=== PATIENT | female | born 1945 | race American Indian/Alaskan Native ===

== ENCOUNTER 2021-12-22 00:11 | Inpatient (IN) | payer MEDICARE ==
--- NOTE | 2021-12-22 00:57 | Emergency Department Report ---
HPI - General Chief Complaint: Dyspnea/Respdistress Time Seen by Provider: 12/22/21 00:30 - HPI HPI: Room 23 The patient is a 76-year-old female present with a chief complaint of shortness of breath. Patient states symptoms began tonight with difficulty breathing. Patient states she developed substernal chest pain described as feeling as though there was a weight on her chest that lasted approximately 15 minutes and resolved after taking nitroglycerin prior to EMS getting there. Patient states she has had an occasional cough occasionally productive of sputum. Patient denies history of fever and states she has been vaccinated against Covid re ceiving 3 doses of the vaccine. The patient states she has a prescription for Lasix but was taking it incorrectly only using it when her legs are swollen instead of daily. The patient states she had not taken her Lasix for the past week until tonight. The patient is not on home O2 and upon arrival to the ED she was found to be hypoxic to 79% on room air. Patient was placed on a nonrebreather with improvement of her sats to 98% ED Past Medical Hx - Past Medical History Previous Medical History?: Yes Hx Hypertension: Yes Hx Congestive Heart Failure: Yes Additional medical history: ANXIETY, ABDOMINAL ANEURYSM - Surgical History Hx Open Heart Surgery: Yes Hx Internal Defibrillator: Yes Additional Surgical History: Mechanical valve replacement (patient uncertain which valve), AICD, AAA repair - Family History Family history: no significant - Social History Smoking Status: Former Smoker (None x1 year) Substance Use Type: None (Denies illicit drug use) ED Review of Systems ROS: Stated complaint: LA Other details as noted in HPI Constitutional: denies: fever Eyes: denies: eye pain ENT: denies: throat pain Respiratory: cough, shortness of breath Cardiovascular: chest pain Endocrine: no symptoms reported Gastrointestinal: denies: abdominal pain Genitourinary: denies: dysuria Musculoskeletal: denies: back pain Neurological: denies: headache Physical Exam - Physical Exam Vital Signs: Vital Signs 12/22/21 00:12 Temperature 96.4 F L Pulse Rate 86 Respiratory 18 Rate Blood Pressure 152/84 [Left] O2 Sat by Pulse 99 Oximetry Physical Exam: GENERAL: The patient is well-developed well-nourished female lying on stretcher with nonrebreather in place not appearing to be in acute distress. [] HEENT: Normocephalic. Atraumatic. Extraocular motions are intact. Patient has moist mucous membranes. NECK: Supple. Trachea midline CHEST/LUNGS: Diminished throughout. There is no respiratory distress noted. HEART/CARDIOVASCULAR: Regular. There is no tachycardia. There is no gallop rub or murmur. ABDOMEN: Abdomen is soft, nontender. Patient has normal bowel sounds. There is no abdominal distention. SKIN: There is no rash. There is no edema. There is no diaphoresis. NEURO: The patient is awake, alert, and oriented. The patient is cooperative. The patient has no focal neurologic deficits. The patient has normal speech. GCS 15 MUSCULOSKELETAL: There is no evidence of acute injury. ED Course Vital Signs 12/22/21 00:12 Temperature 96.4 F L Pulse Rate 86 Respiratory 18 Rate Blood Pressure 152/84 [Left] O2 Sat by Pulse 99 Oximetry ED Medical Decision Making - Lab Data Result diagrams: 12/22/21 01:05 12/22/21 01:05 - EKG Data -: EKG Interpreted by Me EKG shows normal: sinus rhythm Rate: normal - EKG Data When compared to previous EKG there are: previous EKG unavailable Interpretation: nonspecific ST-T wave jeremy - Radiology Data Radiology results: report reviewed (Chest x-ray), image reviewed (Chest x-ray) interpreted by me: Chest x-ray-CHF. Bilateral pleural effusion. No pneumothorax [address] [address] XRay Report Signed Patient: MELLISSA SLOAN MR#: [id number] : 1945 Acct:[id number] Age/Sex: 76 / F ADM Date: 12/22/21 Loc: ED Attending Dr: Ordering Physician: MUKUND PADILLA MD Date of Service: 12/22/21 Procedure(s): XR chest 1V ap Accession Number(s): [id number] cc: MUKUND PADILLA MD Fluoro Time In Minutes: CHEST 1 VIEW INDICATION / CLINICAL INFORMATION: Shortness of breath, chest pain. COMPARISON: None available. FINDINGS: SUPPORT DEVICES: AICD present, generator left chest wall leads terminating in the region of the right atrial appendage and right ventricular apex. HEART / MEDIASTINUM: Borderline mild cardiomegaly. Prior sternotomy with valve replacement. LUNGS / PLEURA: Increased reticular/linear interstitial markings in the lung bases with some more focal airspace opacification in the left greater than right cardiophrenic angles. Minimal blunting of the right costophrenic angle. No pneumothorax. ADDITIONAL FINDINGS: No significant additional findings. IMPRESSION: 1. Mild decompensation and CHF with bibasilar pulmonary edema and small dependent right pleural ef fusion could be considered. Infectious process not entirely excluded. Signer Name: Paxton Mallory II, MD Signed: 12/22/2021 1:30 AM Workstation Name: [id number] Transcribed By: SAYDA Dictated By: PAXTON MALLORY II, MD Electronically Authenticated By: PAXTON MALLORY II, MD Signed Date/Time: 129 DD/ 8 TD/TT: - Differential Diagnosis CHF exacerbation, pneumonia, bronchitis, Critical care attestation.: If time is entered above; I have spent that time in minutes in the direct care of this critically ill patient, excluding procedure time. ED Disposition Clinical Impression: CHF exacerbation, Hypoxia Disposition: ADMITTED INPATIENT Is pt being admited?: Yes Does the pt Need Aspirin: No Condition: Fair Time of Disposition: 03:19 (Hospitalist notified (Dr Obrien))
--- NOTE | 2021-12-22 01:34 | XRay Report ---
CHEST 1 VIEW INDICATION / CLINICAL INFORMATION: Shortness of breath, chest pain. COMPARISON: None available. FINDINGS: SUPPORT DEVICES: AICD present, generator left chest wall leads terminating in the region of the right atrial appendage and right ventricular apex. HEART / MEDIASTINUM: Borderline mild cardiomegaly. Prior sternotomy with valve replacement. LUNGS / PLEURA: Increased reticular/linear interstitial markings in the lung bases with some more foc al airspace opacification in the left greater than right cardiophrenic angles. Minimal blunting of th e right costophrenic angle. No pneumothorax. ADDITIONAL FINDINGS: No significant additional findings. IMPRESSION: 1. Mild decompensation and CHF with bibasilar pulmonary edema and small dependent right pleural effus ion could be considered. Infectious process not entirely excluded. Signer Name: Hernando Howard II, MD Signed: 12/22/2021 1:30 AM Workstation Name: [id number]
[2021-12-22 01:59] LABS: Creatine Kinase MB 1.2 ng/mL (0.0-4.0)
[2021-12-22 02:00] LABS: Alanine Aminotransferase 14 units/L (7-56); Albumin 3.7 g/dL (3.9-5); BUN/Creatinine Ratio 17; Blood Urea Nitrogen 24 mg/dL (7-17); Calcium 8.7 mg/dL (8.4-10.2); Hemolysis Index 7
[2021-12-22 02:13] LABS: Basophils % (Auto) 0.6 % (0.0-1.8); Eosinophils # (Auto) 0.2 K/mm3 (0.0-0.4); Eosinophils % (Auto) 2.1 % (0.0-4.3); Hematocrit 29.5 % (30.3-42.9); Hemoglobin 9.9 gm/dl (10.1-14.3); Lymphocytes # (Auto) 1.5 K/mm3 (1.2-5.4); Lymphocytes % (Auto) 18.1 % (13.4-35.0); Mean Corpuscular HGB Conc 34 % (30-34); Mean Corpuscular Volume 81 fl (79-97); Monocytes # (Auto) 0.4 K/mm3 (0.0-0.8); Monocytes % (Auto) 4.4 % (0.0-7.3); Platelet Count 275 K/mm3 (140-440); Red Blood Count 3.63 M/mm3 (3.65-5.03); Red Cell Distribution Width 19.7 % (13.2-15.2)
[2021-12-22 02:25] LABS: INR 0.93 (0.87-1.13)
[2021-12-22 02:26] LABS: Partial Thromboplastin Time 24.6 Sec. (24.2-36.6)
[2021-12-22 03:15] LABS: Bacteria,Urine 4+ /HPF (Negative); Bilirubin,Urine NEG (Negative); Blood,Urine SM (Negative); Color,Urine Yellow (Yellow); Hyaline Casts,Urine 12 /LPF; Mucus,Urine 2+ /HPF; Protein,Urine <15 mg/dL mg/dL (Negative); Urobilinogen,Urine < 2.0 mg/dL (<2.0)
[2021-12-22] MEDS ORDERED: ACETAMINOPHEN 325 MG TAB PO PRN (04:35)
[2021-12-22] MEDS ORDERED: ONDANSETRON 4 MG/2 ML INJ IV PRN (04:35)
[2021-12-22] MEDS ORDERED: MORPHINE 2 MG/1 ML INJ IV PRN (04:42)
[2021-12-22] MEDS ORDERED: MORPHINE 4 MG/1 ML INJ IV PRN (04:42)
[2021-12-22] MEDS ORDERED: MAGNESIUM HYDROXIDE (MOM) ORAL LIQD UDC PO PRN (04:42)
--- NOTE | 2021-12-22 04:56 | History and Physical Report ---
History of Present Illness Date of examination: 12/22/21 Date of admission: 12/22/2021 Chief complaint: Shortness of breath History of present illness: 6-year-old female with known history of congestive heart failure, hypertension, history of mechanical valve placement and pacemaker placement presents to the emergency room today complaining of shortness of breath. Shortness of breath is said to have been ongoing going since last night. She also indicates that she had some brief episode of chest pressure during which she took some nitroglycerin with relief. Chest pressure lasted for about 15 minutes. Patient has been on diuretics but admits that she has not been taking her diuretics as directed. She takes the diuretics when she feels her legs are swollen. She did not take diuretics for about a week until today. She has had occasional cough which is nonproductive. She denies any fever or chills, no nausea vomiting and no abdominal pain. Denies any headache or dizziness and also denies any diaphoresis. Patient denies any sick contacts and no recent travel. Denies any contact with anyone with COVID-19. She has been fully vaccinated against COVID-19. Upon arrival of EMS patient was found to be hypoxic with oxygen saturation of about 79% on room air she was subsequently placed on nonrebreather with improvement of oxygen saturation to 90%. Work-up in the emergency room today, lab is significant for BUN of 24 and creatinine of 1.4, BNP of 4950. Urinalysis significant for a mild UTI. Past History Past Medical History: hypertension, other (Anxiety, abdominal aneurysm) Past Surgical History: Other (Mechanical valve replacement (patient uncertain which valve), AICD, AAA repair defibrillator placement, open heart surgery) Social history: smoking (Former smoker) Family history: no significant family history Medications and Allergies Allergies Allergy/AdvReac Type Severity Reaction Status Date / Time Iodine and Iodide Containing Allergy Severe Anaphylaxis Verified 12/22/21 02:21 Produc morphine Allergy Severe Anaphylaxis Verified 12/22/21 02:21 Active Meds: Active Medications Acetaminophen (Acetaminophen 325 Mg Tab) 650 mg PO Q4H PRN PRN Reason: Pain MILD(1-3)/Fever >100.5/[place] Furosemide (Furosemide 40 Mg/4 Ml Inj) 40 mg IV BID@0600,1800 [facility] Magnesium Hydroxide (Magnesium Hydroxide (Mom) Oral Liqd Udc) 30 ml PO Q4H PRN PRN Reason: Constipation Morphine Sulfate (Morphine 2 Mg/1 Ml Inj) 2 mg IV Q4H PRN PRN Reason: Pain, Moderate (4-6) Morphine Sulfate (Morphine 4 Mg/1 Ml Inj) 4 mg IV Q4H PRN PRN Reason: Pain , Severe (7-10) Ondansetron HCl (Ondansetron 4 Mg/2 Ml Inj) 4 mg IV Q8H PRN PRN Reason: Nausea And Vomiting Sodium Chloride (Sodium Chloride 0.9% 10 Ml Flush Syringe) 10 ml IV BID ROSEANN Sodium Chloride (Sodium Chloride 0.9% 10 Ml Flush Syringe) 10 ml IV PRN PRN PRN Reason: LINE FLUSH Review of Systems Constitutional: no fever, no chills Ears, nose, mouth and throat: no nasal congestion, no sore throat Cardiovascular: no chest pain, no palpitations Respiratory: cough (Occasionally), shortness of breath Gastrointestinal: no abdominal pain, no nausea, no vomiting, no diarrhea Genitourinary Female: no pelvic pain, no flank pain, no dysuria, no hematuria Musculoskeletal: no neck pain, no low back pain Integumentary: no rash, no pruritis Neurological: no headaches, no confusion Psychiatric: no anxiety, no depression Endocrine: no polyphagia, no polydipsia, no polyuria, no nocturia Exam - Constitutional Vitals: Temp Pulse Resp BP Pulse Ox 98.9 F 63 15 128/58 97 12/22/21 04:48 12/22/21 04:46 12/22/21 04:49 12/22/21 04:46 12/22/21 04:49 General appearance: Present: no acute distress, well-nourished - EENT Eyes: Present: PERRL, EOM intact. Absent: scleral icterus ENT: hearing intact, clear oral mucosa, dentition normal - Neck Neck: Present: supple, normal ROM - Respiratory Respiratory effort: normal Respiratory: bilateral: rales - Cardiovascular Rhythm: other (Pacemaker in placeleft anterior chest wall) Heart Sounds: Present: S1 & S2, systolic murmur. Absent: gallop, diastolic murmur, rub, click - Extremities Extremities: no ischemia, pulses intact, pulses symmetrical, No edema, normal temperature, normal color, Full ROM Peripheral Pulses: within normal limits - Abdominal General gastrointestinal: Present: soft, non-tender, non-distended, normal bowel sounds. Absent: mass - Integumentary Integumentary: Present: clear, warm, dry, normal turgor. Absent: rash - Musculoskeletal Musculoskeletal: strength equal bilaterally - Psychiatric Psychiatric: appropriate mood/affect, intact judgment & insight, memory intact, cooperative - Neurologic Neurologic: CNII-XII intact, no focal deficits, moves all extremities HEART Score - HEART Score Troponin: Troponin T < 0.010 ng/mL (0.00-0.029) 12/22/21 01:05 Results - Labs CBC & Chem 7: 12/22/21 01:05 12/22/21 01:05 Labs: Abnormal lab results 12/22/21 12/22/21 12/22/21 Range/Units 01:05 01:05 02:48 RBC 3.63 L (3.65-5.03) M/mm3 Hgb 9.9 L (10.1-14.3) gm/dl Hct 29.5 L (30.3-42.9) % MCH 27 L (28-32) pg RDW 19.7 H (13.2-15.2) % Seg Neutrophils % 74.8 H (40.0-70.0) % Carbon Dioxide 20 L (22-30) mmol/L BUN 24 H (7-17) mg/dL Creatinine 1.4 H (0.6-1.2) mg/dL Glucose 106 H (65-100) mg/dL Alkaline Phosphatase 160 H (35-129) units/L NT-Pro-B Natriuret Pep 4950 H (0-900) pg/mL Albumin 3.7 L (3.9-5) g/dL Urine WBC (Auto) 24.0 H (0.0-6.0) /HPF Assessment and Plan - Patient Problems (1) CHF exacerbation Current Visit: Yes Status: Acute Plan to address problem: Patient admitted and placed on diuretics. We will monitor inputs and outputs and also monitor daily weight. We will schedule for echocardiogram. (2) Hypertension Current Visit: Yes Status: Acute Plan to address problem: We will resume routine home medications and monitor vital signs closely. (3) Hypoxia Current Visit: Yes Status: Acute Plan to address problem: Possibly secondary to the CHF exacerbation. Patient not on oxygen at home. We will place on oxygen keep O2 saturation greater or equal to 92%. (4) UTI (urinary tract infection) Current Visit: Yes Status: Acute Plan to address problem: Patient placed on empiric IV antibiotics. (5) REJI (acute kidney injury) Current Visit: Yes Status: Acute Plan to address problem: Baseline BUN and creatinine unknown. No history of renal failure Consult placed to nephrology for evaluation and recommendation. (6) DVT prophylaxis Current Visit: Yes Status: Acute Plan to address problem: Patient placed on subcutaneous heparin. (7) Full code status Current Visit: Yes Status: Acute Plan to address problem: Patient is full code.
--- NOTE | 2021-12-22 08:19 | Event Note ---
Date: 12/22/21 Patient seen and examined. This is a follow-up from an admission earlier this morning. We will continue to plan as outlined in the H&P. Follow-up echocardiogram and await cardiology consultation. Follow-up blood and urine cultures. Continue IV antibiotics for UTI. Total visit time equals 35 minutes with greater than 50% spent on coordination of care and counseling.
--- NOTE | 2021-12-22 09:13 | Consultation ---
History of Present Illness - Reason for Consult acute renal failure - History of Present Illness Very pleasant 76-year-old -[place] female with a past history of congestive heart failure, hypertension, coronary artery disease, status post coronary artery bypass graft, along with history of abdominal aortic aneurysm repair, presented to emergency department secondary to progressively worsening shortness of breath over the last 2 to 3 days. Patient states that she had been inconsistently taking her home diuretic therapies. Apparently she was only taking her daily Lasix on an as-needed basis. Symptoms worsened and she came into the ED for further evaluation. Chest x-ray concerning for pulmonary edema. Nephrology consulted with initial labs concerning for possible underlying REJI however we do not have a baseline kidney function for this patient. Given her extensive cardiac history she may have underlying chronic kidney disease. She has been started on IV Lasix and has stated improvement in her symptoms since admission at this time. Pending echocardiogram and cardiology evaluation. Past History Past Medical History: hypertension, other (Anxiety, abdominal aneurysm) Past Surgical History: Other (Mechanical valve replacement (patient uncertain which valve), AICD, AAA repair defibrillator placement, open heart surgery) Social history: smoking (Former smoker) Family history: no significant family history Medications and Allergies Allergies Allergy/AdvReac Type Severity Reaction Status Date / Time Iodine and Iodide Containing Allergy Severe Anaphylaxis Verified 12/22/21 02:21 Produc morphine Allergy Severe Anaphylaxis Verified 12/22/21 02:21 Active Meds: Active Medications Acetaminophen (Acetaminophen 325 Mg Tab) 650 mg PO Q4H PRN PRN Reason: Pain MILD(1-3)/Fever >100.5/[place] Furosemide (Furosemide 40 Mg/4 Ml Inj) 40 mg IV BID@0600,1800 [facility] Ceftriaxone Sodium (Rocephin/Ns 1 Gm/50 Ml) 1 gm in 50 mls @ 100 mls/hr IV Q24H [facility]; Protocol Stop: 12/26/21 06:59 Magnesium Hydroxide (Magnesium Hydroxide (Mom) Oral Liqd Udc) 30 ml PO Q4H PRN PRN Reason: Constipation Ondansetron HCl (Ondansetron 4 Mg/2 Ml Inj) 4 mg IV Q8H PRN PRN Reason: Nausea And Vomiting Sodium Chloride (Sodium Chloride 0.9% 10 Ml Flush Syringe) 10 ml IV BID [facility] Sodium Chloride (Sodium Chloride 0.9% 10 Ml Flush Syringe) 10 ml IV PRN PRN PRN Reason: LINE FLUSH Review of Systems Constitutional: fatigue, weakness Cardiovascular: orthopnea, edema, dyspnea on exertion Exam - Vital Signs Vital signs: Vital Signs Temp Pulse Resp BP Pulse Ox 96.4 F L 86 18 152/84 99 12/22/21 00:12 12/22/21 00:12 12/22/21 00:12 12/22/21 00:12 12/22/21 00:12 - General Appearance General appearance: well-developed, appears stated age EENT: ATNC Neck: Present: neck supple Respiratory: Decreased Breath Sounds Heart: regular Gastrointestinal: Present: normal Integumentary: warm and dry Neurologic: no focal deficit Musculoskeletal: Present: deferred Psychiatric: cooperative Results - Lab Results 12/22/21 01:05 12/22/21 01:05 Most recent lab results Calcium 8.7 mg/dL (8.4-10.2) 12/22/21 01:05 Assessment and Plan - Patient Problems (1) REJI (acute kidney injury) Current Visit: Yes Status: Acute Plan to address problem: Patient with acute kidney injury likely in the setting of cardiorenal syndrome. She may have underlying chronic kidney disease. Will obtain urine electrolytes along with a renal ultrasound at this time. She also has what seems to be a mild UTI on urinalysis. She is however asymptomatic in regards to her UTI. Avoid continuous IV fluids. Agree with current diuretic regimen and close monitoring of intake and output. Please avoid all nephrotoxins. (2) CHF exacerbation Current Visit: Yes Status: Acute Plan to address problem: Agree with current diuretic therapy with Lasix 40 mg IV twice daily. Counseled on importance of compliance with daily diuretic therapy at home along with maintaining a low-sodium diet. (3) Hypertension Current Visit: Yes Status: Acute Plan to address problem: Monitor blood pressures on current regimen. (4) UTI (urinary tract infection) Current Visit: Yes Status: Acute Plan to address problem: Urinalysis indicating mild UTI. Please ensure that antibiotics are dosed appropriately for renal function.
[2021-12-22] MEDS: FUROSEMIDE 40 MG/4 ML INJ IV SCH ×2 (09:20→17:55)
[2021-12-22] MEDS: cefTRIAXone/NS 1 GM/50 ML 1 GM/50 ML BAG IV SCH (09:20)
[2021-12-22] MEDS: SODIUM BICARBONATE 650 MG TAB PO SCH ×2 (11:53→22:15)
--- NOTE | 2021-12-22 12:13 | Ultrasound Report ---
ULTRASOUND RENAL INDICATION / CLINICAL INFORMATION: REJI. COMPARISON: None available. FINDINGS: RIGHT KIDNEY: Length = 10.7 cm. - Echogenicity: Mildly echogenic. - Parenchymal Thickness: Mild thinning. - Hydronephrosis: None. - Cyst / Mass: Probable lower pole cyst measuring 1.2 x 1.3 x 0.8 cm. - Stones: None seen. LEFT KIDNEY: Length = 10.2 cm. - Echogenicity: Mildly echogenic. - Parenchymal Thickness: Mild thinning. - Hydronephrosis: None. - Cyst / Mass: None. - Stones: None seen. URINARY BLADDER: No significant abnormality. FREE FLUID: None. ADDITIONAL FINDINGS: There is a mildly complex fluid collection posterior to the bladder measuring ap proximately 10.2 cm in maximum dimension. Incidental finding of a right pleural effusion. IMPRESSION: 1. 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 2. Complex fluid collection measuring 10.2 cm is visualized posterior to the urinary bladder. CT pelv is with oral and IV contrast may be useful for further evaluation. 3. Incidental finding of a right pleural effusion. Scribed by: Jewels Damico RDMS, MEGHANN, INES Scribed: 12/22/2021 11:05 AM I have reviewed the images, agree with this report, and edited this report as needed. Signer Name: Leighton Jarvis MD Signed: 12/22/2021 12:08 PM Workstation Name: [id number]
[2021-12-22 13:11] LABS: Chloride, Urine 111.8 mmolL (110-250)
[2021-12-22 13:21] LABS: Creatinine,Urine 22.8 mg/dL (0.1-20.0)
--- NOTE | 2021-12-22 14:05 | Consultation ---
History of Present Illness Consult date: 12/22/21 Requesting physician: JUANPABLO CABAN Consult reason: congestive heart failure History of present illness: Patient is a 76-year-old female with a past medical history of CAD s/p CABG and PCI(07/2021), AICD(Medtronic 07/2021), s/p AAA repair(10/24/2021), hypertension, who presented to [facility] with complaint of difficulty breathing which he states has been going on for about a week however as of last night she said her symptoms became severely worse. Patient reports that last night all of a sudden she was unable to breathe she reported orthopnea and dyspnea on exertion. She also reports that she has not been taking her Lasix daily as she was instructed to. She thought that she was only supposed to take her Lasix if she saw her leg swelling. She states that she is compliant with her other medications, fluid restrictions, and diet restrictions. At time of interview patient reports improvement in symptoms from the time she was admitted once receiving IV Lasix. Patient is previously unknown to our practice however patient reports she follows with cardiology at [facility]. Cardiology is consulted for CHF exacerbation Past History Past Medical History: CAD, hypertension, other (Anxiety, abdominal aneurysm) Past Surgical History: CABG, Other (Mechanical valve replacement (patient uncertain which valve), AICD, AAA repair defibrillator placement, open heart surgery) Social history: smoking (Former smoker) Family history: no significant family history Medications and Allergies Allergies Allergy/AdvReac Type Severity Reaction Status Date / Time Iodine and Iodide Containing Allergy Severe Anaphylaxis Verified 12/22/21 11:12 Produc morphine Allergy Severe Anaphylaxis Verified 12/22/21 11:12 Home Medications Medication Instructions Recorded Confirmed Last Taken Type AtorvaSTATin [Lipitor] 20 mg PO QHS 12/22/21 12/22/21 Unknown History Furosemide [Lasix TAB] 40 mg PO QDAY 12/22/21 12/22/21 Unknown History Pantoprazole [Protonix] 40 mg PO QDAY 12/22/21 12/22/21 Unknown History carvediloL [Coreg] 6.25 mg PO BID 12/22/21 12/22/21 Unknown History hydrOXYzine HCL [Atarax] 25 mg PO Q8H PRN 12/22/21 12/22/21 Unknown History Active Meds: Active Medications Acetaminophen (Acetaminophen 325 Mg Tab) 650 mg PO Q4H PRN PRN Reason: Pain MILD(1-3)/Fever >100.5/[place] Furosemide (Furosemide 40 Mg/4 Ml Inj) 40 mg IV BID@0600,1800 [facility] Last Admin: 12/22/21 09:20 Dose: 40 mg Ceftriaxone Sodium (Rocephin/Ns 1 Gm/50 Ml) 1 gm in 50 mls @ 100 mls/hr IV Q24H [facility]; Protocol Stop: 12/26/21 06:59 Last Admin: 12/22/21 09:20 Dose: 100 mls/hr Magnesium Hydroxide (Magnesium Hydroxide (Mom) Oral Liqd Udc) 30 ml PO Q4H PRN PRN Reason: Constipation Ondansetron HCl (Ondansetron 4 Mg/2 Ml Inj) 4 mg IV Q8H PRN PRN Reason: Nausea And Vomiting Sodium Bicarbonate (Sodium Bicarbonate 650 Mg Tab) 650 mg PO BID [facility] Last Admin: 12/22/21 11:53 Dose: 650 mg Sodium Chloride (Sodium Chloride 0.9% 10 Ml Flush Syringe) 10 ml IV BID [facility] Last Admin: 12/22/21 09:21 Dose: 10 ml Sodium Chloride (Sodium Chloride 0.9% 10 Ml Flush Syringe) 10 ml IV PRN PRN PRN Reason: LINE FLUSH Review of Systems Constitutional: no weight loss, no weight gain, no fever, no chills Ears, nose, mouth and throat: no sinus pressure, no sinus pain Cardiovascular: orthopnea, shortness of breath, dyspnea on exertion, no chest pain, no palpitations Respiratory: shortness of breath, dyspnea on exertion Gastrointestinal: no abdominal pain, no nausea, no vomiting Musculoskeletal: no neck stiffness, no neck pain, no shooting arm pain Integumentary: no rash, no pruritis, no redness Neurological: no head injury, no transient paralysis, no paralysis Psychiatric: no anxiety, no memory loss Endocrine: no cold intolerance, no heat intolerance Hematologic/Lymphatic: no easy bruising, no easy bleeding Physical Examination Vital Signs Temp Pulse Resp BP Pulse Ox 96.4 F L 86 18 152/84 99 12/22/21 00:12 12/22/21 00:12 12/22/21 00:12 12/22/21 00:12 12/22/21 00:12 General appearance: no acute distress Neck: Positive: trachea midline Cardiac: Positive: Reg Rate and Rhythm Lungs: Positive: Decreased Breath Sounds Abdomen: Positive: Soft, Active Bowel Sounds Skin: Negative: Rash, Suspicious Lesions, Ulceration Extremities: Present: upper extr. pulses, edema Results 12/22/21 01:05 12/22/21 01:05 Cardiac Enzymes 12/22/21 Range/Units 01:05 AST 20 (5-40) units/L CK-MB (CK-2) 1.2 (0.0-4.0) ng/mL Coagulation 12/22/21 Range/Units 01:05 PT 13.5 (12.2-14.9) Sec. INR 0.93 (0.87-1.13) APTT 24.6 (24.2-36.6) Sec. CBC 12/22/21 Range/Units 01:05 WBC 8.2 (4.5-11.0) K/mm3 RBC 3.63 L (3.65-5.03) M/mm3 Hgb 9.9 L (10.1-14.3) gm/dl Hct 29.5 L (30.3-42.9) % Plt Count 275 (140-440) K/mm3 Lymph # (Auto) 1.5 (1.2-5.4) K/mm3 Starr # (Auto) 0.4 (0.0-0.8) K/mm3 Eos # (Auto) 0.2 (0.0-0.4) K/mm3 Baso # (Auto) 0.0 (0.0-0.1) K/mm3 Comprehensive Metabolic Panel 12/22/21 Range/Units 01:05 Sodium 140 (137-145) mmol/L Potassium 4.1 (3.6-5.0) mmol/L Chloride 106.9 (98-107) mmol/L Carbon Dioxide 20 L (22-30) mmol/L BUN 24 H (7-17) mg/dL Creatinine 1.4 H (0.6-1.2) mg/dL Glucose 106 H (65-100) mg/dL Calcium 8.7 (8.4-10.2) mg/dL AST 20 (5-40) units/L ALT 14 (7-56) units/L Alkaline Phosphatase 160 H (35-129) units/L Total Protein 7.0 (6.3-8.2) g/dL Albumin 3.7 L (3.9-5) g/dL - Imaging and Cardiology Echo: report reviewed EKG: report reviewed EKG interpretations - Telemetry EKG Rhythm: Sinus Rhythm - EKG Sinus rhythms and dysrhythmias: sinus rhythm Chamber hypertrophy or enlargement: left ventricular hypertro Assessment and Plan Patient is a 76-year-old female with a past medical history of CAD s/p CABG and PCI(07/2021), AICD(Medtronic 07/2021), s/p AAA repair(10/24/2021), hypertension, who presented to [facility] with complaint of difficulty breathing which he states has been going on for about a week Acute on chronic diastolic heart failure CAD s/p CABG S/p AICD S/p AAA repair Hypertension Medical noncompliance Echo 09/29/2021-Left ventricular ejection fraction is 50%. Low normal LV ejection fraction by Krueger's biplane MOD. Basal inferolateral segment and basal inferior segment are abnormal.Mildly increased left ventricular wall thickness. There is moderately increased filling pressure consistent with grade 2 diastolic dysfunction. The left ventricular size is moderately dilated. Myocardial strain imaging was performed on a [employer] ultrasound system. Left ventricular (LV) longitudinal strain was abnormal at -10.2%. There is evidence of prior mitral repair wiht an annular ring. Mean gradient of 5 across the mitral valve. Moderate mitral valve regurgitation. Severely dilated left atrium. Mildly reduced right ventricular systolic function. Mildly enlarged right ventricular cavity size. The tricuspid annular plane systolic excursion is 1.8 cm. The portion of the abdominal aorta that was visualized appears to be aneurysmal. Outpatient medications: Coreg 3.125 mg p.o. twice daily, losartan 25 mg p.o. daily, Lasix 40 mg p.o. daily, atorvastatin 20 mg p.o. nightly, aspirin 325 mg p.o. daily Plan: EKG shows sinus rhythm 80 LVH and nonspecific T abnormalities. Troponins negative x1. Patient denies any complaints of chest pain BNP noted to be elevated and CXR showed pulmonary edema. Patient also reports being noncompliant with. Agree with diuresis of Lasix 40 mg IV twice daily. Plan to transition to p.o. Lasix tomorrow Will resume outpatient Coreg, atorvastatin, aspirin Will hold MAXIMILIAN or ARB due to elevated creatinine and per nephrology recs to avoid nephrotoxic agent Patient seen in conjunction with Dr. Gaytan who agrees with this plan of care - Patient Problems (1) Acute diastolic heart failure Current Visit: Yes Status: Acute (2) Coronary artery disease Current Visit: Yes Status: Acute (3) Medical non-compliance Current Visit: Yes Status: Acute (4) Automatic implantable cardioverter-defibrillator in situ Current Visit: Yes Status: Acute (5) REJI (acute kidney injury) Current Visit: Yes Status: Acute (6) Hypertension Current Visit: Yes Status: Acute (7) UTI (urinary tract infection) Current Visit: Yes Status: Acute
[2021-12-22] MEDS ORDERED: oxyCODONE /ACETAMINOPHEN 5-325MG TAB PO PRN (17:00)
[2021-12-22] MEDS ORDERED: hydrOXYzine HCL 25 MG TAB PO PRN (17:04)
[2021-12-22] MEDS: HYDROcodone/ACETAMINOPHEN 5-325 MG TAB PO PRN (17:05)
[2021-12-22] MEDS ORDERED: carvediloL 3.125 MG TAB PO SCH (22:00)
[2021-12-22] MEDS: carvediloL 6.25 MG TAB PO SCH (22:15)
[2021-12-22] MEDS ORDERED: SODIUM CHLORIDE 0.9% 1000 ML 1,000 ML IV ONE (23:11)
[2021-12-23] MEDS: cefTRIAXone/NS 1 GM/50 ML 1 GM/50 ML BAG IV SCH (05:33)
[2021-12-23 05:41] LABS: Basophils % (Auto) 0.5 % (0.0-1.8); Eosinophils # (Auto) 0.2 K/mm3 (0.0-0.4); Eosinophils % (Auto) 4.5 % (0.0-4.3); Hematocrit 32.5 % (30.3-42.9); Hemoglobin 10.1 gm/dl (10.1-14.3); Lymphocytes # (Auto) 1.9 K/mm3 (1.2-5.4); Lymphocytes % (Auto) 42.3 % (13.4-35.0); Mean Corpuscular HGB Conc 31 % (30-34); Mean Corpuscular Volume 82 fl (79-97); Monocytes # (Auto) 0.4 K/mm3 (0.0-0.8); Monocytes % (Auto) 9.4 % (0.0-7.3); Platelet Count 238 K/mm3 (140-440); Red Blood Count 3.99 M/mm3 (3.65-5.03); Red Cell Distribution Width 19.9 % (13.2-15.2)
[2021-12-23] MEDS: HYDROcodone/ACETAMINOPHEN 5-325 MG TAB PO PRN (05:45)
[2021-12-23 05:53] LABS: Calcium 8.2 mg/dL (8.4-10.2)
[2021-12-23] MEDS ORDERED: POTASSIUM CHLORIDE ER 20 MEQ TAB PO NR (09:00)
[2021-12-23] MEDS ORDERED: PANTOPRAZOLE 40 MG TAB PO SCH (10:00)
[2021-12-23] MEDS ORDERED: FUROSEMIDE 40 MG TAB PO SCH (10:00)
[2021-12-23] MEDS ORDERED: ASPIRIN 325 MG TAB PO SCH (10:00)
[2021-12-23] MEDS ORDERED: LOSARTAN 25 MG TAB PO SCH (10:00)
[2021-12-23] MEDS: FUROSEMIDE 20 MG TAB PO SCH ×2 (10:16→10:38)
[2021-12-23] MEDS: SODIUM BICARBONATE 650 MG TAB PO SCH (10:17)
--- NOTE | 2021-12-23 10:21 | Electrocardiograph Report ---
[facility] Test Date: 2021-12-22 Test Time: 02:55:23 Pat Name: MELLISSA SLOAN Department: Room: A387 1 Gender: F Director Call Center Sales: AMINATA : 1945 Requested By: MUKUND PADILLA Order Number: [id number] Reading MD: Layo Gaytan Measurements Intervals [place] Rate: 80 P: 74 MO: 189 QRS: 83 QRSD: 118 T: QT: 443 QTc: 512 Interpretive Statements Sinus rhythm Probable left atrial enlargement Left ventricular hypertrophy Nonspecific T abnormalities, lateral leads No previous ECG available for comparison Electronically Signed On 12-23-2021 10:20:57 EST by Layo Gaytan
[2021-12-23 10:35] VITALS: BP 107/47
[2021-12-23] MEDS: carvediloL 6.25 MG TAB PO SCH (10:38)
--- NOTE | 2021-12-23 12:41 | Progress Note ---
Assessment and Plan Patient is a 76-year-old female with a past medical history of CAD s/p CABG and PCI(07/2021), AICD(Medtronic 07/2021), s/p AAA repair(10/24/2021), hypertension, who presented to [facility] with complaint of difficulty breathing which he states has been going on for about a week Acute on chronic diastolic heart failure CAD s/p CABG S/p AICD S/p AAA repair Hypertension Medical noncompliance Echo 09/29/2021-Left ventricular ejection fraction is 50%. Low normal LV ejection fraction by Krueger's biplane MOD. Basal inferolateral segment and basal inferior segment are abnormal.Mildly increased left ventricular wall thickness. There is moderately increased filling pressure consistent with grade 2 diastolic dysfunction. The left ventricular size is moderately dilated. Myocardial strain imaging was performed on a [employer] ultrasound system. Left ventricular (LV) longitudinal strain was abnormal at -10.2%. There is evidence of prior mitral repair wiht an annular ring. Mean gradient of 5 across the mitral valve. Moderate mitral valve regurgitation. Severely dilated left atrium. Mildly reduced right ventricular systolic function. Mildly enlarged right ventricular cavity size. The tricuspid annular plane systolic excursion is 1.8 cm. The portion of the abdominal aorta that was visualized appears to be aneu rysmal. Outpatient medications: Coreg 3.125 mg p.o. twice daily, losartan 25 mg p.o. daily, Lasix 40 mg p.o. daily, atorvastatin 20 mg p.o. nightly, aspirin 325 mg p.o. daily Plan: Transition to p.o. Lasix tomorrow Continue Coreg, atorvastatin, aspirin Will hold MAXIMILIAN or ARB due to elevated creatinine and per nephrology recs to avoid nephrotoxic agent. May resume losartan if cleared by nephrology Discussed with patient the importance of medication compliance. Patient verbalized understanding and acknowledgment Cardiac status stable for discharge Patient should follow-up with her primary lead neurodiagnostic technologist in 1 to 2 weeks after discharge Patient seen in conjunction with Dr. Gaytan who agrees with this plan of care - Patient Problems (1) Acute diastolic heart failure Current Visit: Yes Status: Acute (2) Coronary artery disease Current Visit: Yes Status: Acute (3) Medical non-compliance Current Visit: Yes Status: Acute (4) Automatic implantable cardioverter-defibrillator in situ Current Visit: Yes Status: Acute (5) REJI (acute kidney injury) Current Visit: Yes Status: Acute (6) Hypertension Current Visit: Yes Status: Acute (7) UTI (urinary tract infection) Current Visit: Yes Status: Acute Subjective Date of service: 12/23/21 Principal diagnosis: Acute diastolic heart failure Interval history: Patient resting in bed in no acute distress. Patient reports feeling much better this a.m. Patient not on monitor Objective Vital Signs Temp Pulse Pulse Resp BP Pulse Ox 12/23/21 10:38 66 107/47 12/23/21 10:33 66 107/47 12/23/21 09:20 98 12/23/21 06:45 18 12/23/21 05:45 20 12/23/21 05:16 98.3 F 65 18 127/56 92 12/22/21 22:15 78 109/54 12/22/21 22:00 60 18 95 12/22/21 21:55 98.2 F 78 18 109/54 97 12/22/21 16:43 83 16 129/71 98 12/22/21 13:30 96 12/22/21 13:18 111 H 16 152/82 - Physical Examination General: No Apparent Distress Neck: Positive: trachea midline Cardiac: Positive: Reg Rate and Rhythm Lungs: Positive: Normal Breath Sounds Neuro: Positive: Grossly Intact Abdomen: Positive: Soft, Active Bowel Sounds Skin: Negative: Rash, Suspicious Lesions, Ulceration Extremities: Present: upper extr. pulses. Absent: edema - Labs and Meds CBC 12/23/21 Range/Units 05:19 WBC 4.4 L (4.5-11.0) K/mm3 RBC 3.99 (3.65-5.03) M/mm3 Hgb 10.1 (10.1-14.3) gm/dl Hct 32.5 (30.3-42.9) % Plt Count 238 (140-440) K/mm3 Lymph # (Auto) 1.9 (1.2-5.4) K/mm3 Sandoval # (Auto) 0.4 (0.0-0.8) K/mm3 Eos # (Auto) 0.2 (0.0-0.4) K/mm3 Baso # (Auto) 0.0 (0.0-0.1) K/mm3 Comprehensive Metabolic Panel 12/23/21 Range/Units 05:19 Sodium 142 (137-145) mmol/L Potassium 3.3 L (3.6-5.0) mmol/L Chloride 105.9 (98-107) mmol/L Carbon Dioxide 25 (22-30) mmol/L BUN 24 H (7-17) mg/dL Creatinine 1.4 H (0.6-1.2) mg/dL Glucose 98 (65-100) mg/dL Calcium 8.2 L (8.4-10.2) mg/dL - Imaging and Cardiology EKG: report reviewed Echo: report reviewed - Telemetry EKG Rhythm: Sinus Rhythm - EKG Sinus rhythms and dysrhythmias: sinus rhythm Chamber hypertrophy or enlargement: left ventricular hypertro
--- NOTE | 2021-12-23 12:55 | Progress Note ---
Assessment and Plan - Patient Problems (1) REJI (acute kidney injury) Current Visit: Yes Status: Acute Plan to address problem: Patient with acute kidney injury likely in the setting of cardiorenal syndrome. She may have underlying chronic kidney disease. Overall renal function is stable this am. Renal US reviewed. She may have underlying CKD. If no further cardiac workup planned, then from renal standpoint she is stable for DC. (2) CHF exacerbation Current Visit: Yes Status: Acute Plan to address problem: Agree with current diuretic therapy with Lasix 40 mg IV twice daily. Counseled on importance of compliance with daily diuretic therapy at home along with maintaining a low-sodium diet. Can transition to oral regimen prior to discharge. Can continue with lasix 40 mg daily. (3) Hypertension Current Visit: Yes Status: Acute Plan to address problem: Monitor blood pressures on current regimen. (4) UTI (urinary tract infection) Current Visit: Yes Status: Acute Plan to address problem: Urinalysis indicating UTI with urine culture indicating gram (-) nely. Antibiotic regimen per primary team. Subjective Date of service: 12/23/21 Principal diagnosis: Acute diastolic heart failure Interval history: Patient seen this am. No acute issues overnight. Labs are stable, and she is on room air this am. Objective - Vital Signs Vital signs: Vital Signs - 12hr 12/23/21 12/23/21 12/23/21 05:16 05:45 06:45 Temperature 98.3 F Pulse Rate 65 Respiratory 18 20 18 Rate Blood Pressure 127/56 O2 Sat by Pulse 92 Oximetry 12/23/21 12/23/21 12/23/21 09:20 10:33 10:38 Temperature Pulse Rate 66 66 Respiratory Rate Blood Pressure 107/47 107/47 O2 Sat by Pulse 98 Oximetry - General Appearance General appearance: well-developed, appears stated age EENT: ATNC Neck: no JVD Respiratory: Present: Clear to Ascultation, Decreased Breath Sounds Cardiology: regular Gastrointestinal: normal Integumentary: no rash, warm and dry Neurologic: no focal deficit, alert and oriented x3 Musculoskeletal: deferred Psychiatric: cooperative - Lab 12/23/21 05:19 12/23/21 05:19 Most recent lab results Calcium 8.2 mg/dL (8.4-10.2) L 12/23/21 05:19 Urine Creatinine 22.8 mg/dL (0.1-20.0) H 12/22/21 09:30 Urine Sodium 113 mmol/L 12/22/21 09:30 - Imaging Chest x-ray: pending - Allied health notes Allied health notes reviewed: nursing Medications & Allergies - Medications Allergies/Adverse Reactions: Allergies Iodine and Iodide Containing Produc Allergy (Severe, Verified 12/22/21 11:12) Anaphylaxis morphine Allergy (Severe, Verified 12/22/21 11:12) Anaphylaxis Home Medications: Home Medications Medication Instructions Recorded Confirmed Last Taken Type AtorvaSTATin [Lipitor] 20 mg PO QHS 12/22/21 12/22/21 Unknown History Furosemide [Lasix TAB] 40 mg PO QDAY 12/22/21 12/22/21 Unknown History Losartan [Cozaar] 25 mg PO QDAY 12/22/21 12/22/21 Unknown History Pantoprazole [Protonix] 40 mg PO QDAY 12/22/21 12/22/21 Unknown History carvediloL [Coreg] 6.25 mg PO BID 12/22/21 12/22/21 Unknown History hydrOXYzine HCL [Atarax] 25 mg PO Q8H PRN 12/22/21 12/22/21 Unknown History Active Medications: Generic Name Dose Route Start Last Admin Trade Name Freq PRN Reason Stop Dose Admin Acetaminophen 650 mg 12/22/21 04:35 Acetaminophen 325 Mg Tab PO Q4H PRN Pain MILD(1-3)/Fever >100.5/[place] Hydrocodone Bitart/Acetaminophen 1 each 12/22/21 16:36 12/23/21 05:45 Hydrocodone/Acetaminophen 5-325 Mg Tab PO 1 each Q6H PRN Administration Pain, Moderate (4-6) Aspirin 325 mg 12/23/21 10:00 12/23/21 10:16 Aspirin 325 Mg Tab PO 325 mg QDAY ROSEANN Administration Atorvastatin Calcium 20 mg 12/22/21 22:00 12/22/21 22:15 Atorvastatin 20 Mg Tab PO 20 mg QHS ROSEANN Administration Carvedilol 6.25 mg 12/22/21 22:00 12/23/21 10:38 Carvedilol 6.25 Mg Tab PO Not Given BID ROSEANN Furosemide 40 mg 12/23/21 10:00 12/23/21 10:38 Furosemide 20 Mg Tab PO Not Given QDAY ROSEANN Hydroxyzine HCl 25 mg 12/22/21 17:04 12/22/21 17:55 Hydroxyzine Hcl 25 Mg Tab PO 25 mg Q8H PRN Administration Anxiety Losartan Potassium 25 mg 12/23/21 10:00 12/23/21 10:33 Losartan 25 Mg Tab PO Not Given QDAY ROSEANN Magnesium Hydroxide 30 ml 12/22/21 04:42 Magnesium Hydroxide (Mom) Oral Liqd Udc PO Q4H PRN Constipation Ondansetron HCl 4 mg 12/22/21 04:35 Ondansetron 4 Mg/2 Ml Inj IV Q8H PRN Nausea And Vomiting Pantoprazole Sodium 40 mg 12/23/21 10:00 12/23/21 10:17 Pantoprazole 40 Mg Tab PO 40 mg QDAY ROSEANN Administration Potassium Chloride 40 meq 12/23/21 09:00 12/23/21 10:16 Potassium Chloride Er 20 Meq Tab PO 12/23/21 15:00 40 meq ONCE@0900 NR Administration Sodium Bicarbonate 650 mg 12/22/21 10:00 12/23/21 10:17 Sodium Bicarbonate 650 Mg Tab PO 650 mg BID ROSEANN Administration Sodium Chloride 10 ml 12/22/21 10:00 12/23/21 10:17 Sodium Chloride 0.9% 10 Ml Flush Syringe IV 10 ml BID ROSEANN Administration Sodium Chloride 10 ml 12/22/21 04:35 Sodium Chloride 0.9% 10 Ml Flush Syringe IV PRN PRN LINE FLUSH
--- NOTE | 2021-12-23 13:20 | Discharge Summary ---
Providers - Providers Date of Admission: 12/22/21 04:35 Date of discharge: 12/23/21 Attending physician: ART BISWAS MD 12/22/21 04:42 Consult to Physician [CONS] Routine Comment: Consulting Provider: JESUS BALDERAS Physician Instructions: Reason For Exam: CHF Exac. 12/22/21 05:40 Consult to Physician [CONS] Routine Comment: Consulting Provider: SEDA GODWIN Physician Instructions: Reason For Exam: REJI Primary care physician: VENANCIO LUCAS Hospitalization Reason for admission: Acute on chronic systolic heart failure Condition: Fair Pertinent studies: Reviewed. Procedures: None. Hospital course: 76-year-old female with a past medical history of CAD s/p CABG and PCI(07/2021), AICD([employer] 07/2021), s/p AAA repair(10/24/2021), hypertension, who presented to [facility] with complaint of difficulty breathing secondary to acute on chronic diastolic heart failure. She describes her symptoms acutely getting worse the night prior to ED presentation. The patient also admits only taking her Lasix when she saw her leg swelling; she was not aware that she should be taking her Lasix daily. Patient was admitted for further management including IV diuresis and restarting medical management. Cardiology was consulted for further recommendations, which was medical management. Patient had negative troponins x1 and denied any chest pain. Patient presented with a creatinine of 1.4, nephrology was consulted. Renal ultrasound was negative for any obstruction, and it is unknown if she has any possible underlying CKD. The patient has been counseled about how to take her medications, and she expresses understanding. Patient is medically cleared for discharge. Disposition: 01 HOME / SELF CARE / HOMELESS Final Discharge Diagnosis (Prints w/discharge instructions): 76-year-old female with a past medical history of CAD s/p CABG and PCI(07/2021), AICD([employer] 07/2021), s/p AAA repair(10/24/2021), hypertension, who presented to [facility] with complaint of difficulty breathing Time spent for discharge: 45 min Core Measure Documentation - Palliative Care Palliative Care/ Comfort Measures: Not Applicable - Core Measures Any of the following diagnoses?: heart failure - Heart Failure Discharge Requirements MAXIMILIAN/ARB for LVSD if EF <40%: No Reason for no MAXIMILIAN/ARB: Renal impairment Beta isra at discharge: Yes Exam - Constitutional Vitals: Temp Pulse Resp BP Pulse Ox 98.3 F 66 18 107/47 98 12/23/21 05:16 12/23/21 10:38 12/23/21 06:45 12/23/21 10:38 12/23/21 09:20 General appearance: Present: no acute distress, well-nourished - EENT Eyes: Present: PERRL, EOM intact ENT: hearing intact, clear oral mucosa - Neck Neck: Present: supple, normal ROM - Respiratory Respiratory effort: normal Respiratory: bilateral: CTA - Cardiovascular Rhythm: regular Heart Sounds: Present: S1 & S2 - Extremities Extremities: no ischemia, pulses intact, pulses symmetrical, normal temperature, normal color Peripheral Pulses: within normal limits - Abdominal General gastrointestinal: Present: soft, non-tender, non-distended, normal bowel sounds Female genitourinary: Present: deferred - Rectal Rectal Exam: deferred - Integumentary Integumentary: Present: clear, warm, dry - Musculoskeletal Musculoskeletal: strength equal bilaterally - Psychiatric Psychiatric: appropriate mood/affect, cooperative - Neurologic Neurologic: CNII-XII intact - Allied Health Allied health notes reviewed: nursing Plan Activity: no restrictions Diet: low salt Special Instructions: restrict fluid intake to (1.5 L/day) Additional Instructions: 76-year-old female with a past medical history of CAD s/p CABG and PCI(07/2021), AICD([employer] 07/2021), s/p AAA repair(10/24/2021), hypertension, who presented to [facility] with complaint of difficulty breathing secondary to acute on chronic diastolic heart failure. She describes her symptoms acutely getting worse the night prior to ED presentation. The patient also admits only taking her Lasix when she saw her leg swelling; she was not aware that she should be taking her Lasix daily. Patient was admitted for further management including IV diuresis and restarting medical management. Cardiology was consulted for further recommendations, which was medical management. Patient had negative troponins x1 and denied any chest pain. Patient presented with a creatinine of 1.4, nephrology was consulted. Renal ultrasound was negative for any obstruction, and it is unknown if she has any possible underlying CKD. The patient has been counseled about how to take her medications, and she expresses understanding. Patient is medically cleared for discharge. Care Plan Goals: Patient is medically cleared for discharge. Assessment: 76-year-old female with a past medical history of CAD s/p CABG and PCI(07/2021), AICD([employer] 07/2021), s/p AAA repair(10/24/2021), hypertension, who presented to [facility] with complaint of difficulty breathing secondary to acute on chronic diastolic heart failure. She describes her symptoms acutely getting worse the night prior to ED presentation. The patient also admits only taking her Lasix when she saw her leg swelling; she was not aware that she should be taking her Lasix daily. Patient was admitted for further management including IV diuresis and restarting medical management. Cardiology was consulted for further recommendations, which was medical management. Patient had negative troponins x1 and denied any chest pain. Patient presented with a creatinine of 1.4, nephrology was consulted. Renal ultrasound was negative for any obstruction, and it is unknown if she has any possible underlying CKD. The patient has been counseled about how to take her medications, and she expresses understanding. Patient is medically cleared for discharge. Follow up with: VENANCIO LUCAS MD [Primary Care Provider] - 7 Days PATIENCE WYNNE MD [Staff Physician] - 7 Days
== END 2021-12-23 15:48 | disposition home or self-care (01) | DRG 291 ==
LOC: ED 00:11 → 3A 04:35
PROVIDERS: ADMIT Internal Medicine Geriatric Medicine; ATTEND Student in an Organized Health Care Education/Training Program
DX: I13.0 Hypertensive heart and chronic kidney disease with heart failure and stage 1 through stage 4 chronic kidney disease, or unspecified chronic kidney disease (principal); I50.33 Acute on chronic diastolic (congestive) heart failure; N17.9 Acute kidney failure, unspecified; N39.0 Urinary tract infection, site not specified; R09.02 Hypoxemia; N18.9 Chronic kidney disease, unspecified; I25.10 Atherosclerotic heart disease of native coronary artery without angina pectoris; Z91.19 Patient's noncompliance with other medical treatment and regimen; Z88.6 Allergy status to analgesic agent; Z88.3 Allergy status to other anti-infective agents; F41.9 Anxiety disorder, unspecified; Z95.810 Presence of automatic (implantable) cardiac defibrillator; Z87.891 Personal history of nicotine dependence; Z95.1 Presence of aortocoronary bypass graft
CPT/HCPCS: 36415; 71045; 76770; 80048; 80053; 81001; 82140; 82436; 82550; 82553; 82570; 83880; 84300; 84484; 85025; 85610; 85730; 87040; 87076; 87086; 87186; 93005; 94760; G0378; Q0162; Q0177; J0696; J1940; J7030